=== PATIENT | female | born 1975 | race Two or more races ===

== ENCOUNTER 2017-04-12 15:16 | Emergency (ER) | payer OTHER ==
[2017-04-12 15:21] VITALS: BP 122/73; PULSE 90; TEMP 98.3; BMI 24.2
--- NOTE | 2017-04-12 15:21 | PDOC ---
Rapid Medical Evaluation Chief Complaint: Pain Time Seen by Provider: 04/12/17 15:19 Medical Evaluation: Allergies Allergy/AdvReac Type Severity Reaction Status Date / Time No Known Allergies Allergy Verified 04/12/17 15:18 04/12/17 15:20 The patient presents with a chief complaint of: [Swelling to the upper gum line , root canal performed on same in December, Swelling since wednesday, has improved. ] I have performed a brief in-person evaluation of this patient. Pertinent physical exam findings: vss, [ Minor swelling with no evidence of abscess. ] I have ordered the following: [I will evaluate and discharge patient on antibiotics and pain medication. ] The patient will proceed to the ED for further evaluation.
--- NOTE | 2017-04-12 16:44 | PDOC ---
History of Present Illness - General Chief Complaint: Pain Stated Complaint: SWOLLEN LIP Time Seen by Provider: 04/12/17 15:19 History Source: Patient Exam Limitations: No Limitations - History of Present Illness Initial Comments: 04/12/17 16:39 Patient is a 42 y/o female with no significant medical history. Presents to the ER with pain and redness with swelling to the left upper gum line since Wednesday. Had a root canal to the same tooth in December. Has not gone back to the dentist. Denies fever, no difficulty swallowing or breathing, no throat pain, no SOB or CP. Swelling is decreased in the last two days. Getting better as per patient. No Fever 04/12/17 16:44 Timing/Duration: other (2 days) Severity: moderate Past History - Past Medical History Allergies/Adverse Reactions: Allergies Allergy/AdvReac Type Severity Reaction Status Date / Time No Known Allergies Allergy Verified 04/12/17 15:18 Home Medications: Ambulatory Orders Amoxicillin/Potassium Clav [Augmentin 875-125 Tablet] 1 each PO BID #20 tablet 04/12/17 Oxycodone HCl/Acetaminophen [Percocet 5-325 mg Tablet] 1 - 2 tab PO Q4H #20 tablet MDD 12 04/12/17 COPD: No - Suicide/Smoking/Psychosocial Hx Smoking History: Never smoked Have you smoked in the past 12 months: No Information on smoking cessation initiated: No Hx Alcohol Use: No Drug/Substance Use Hx: No Substance Use Type: None Review of Systems - Review of Systems Constitutional: No: Symptoms Reported HEENTM: Yes: Mouth Pain, Dental Problems, Mouth Swelling (left upper gum line. b ). No: Difficulty Swallowing Respiratory: No: Symptoms reported Cardiac (ROS): No: Symptoms Reported ABD/GI: No: Symptoms Reported : No: Symptoms Reported Musculoskeletal: No: Symptoms Reported Integumentary: No: Symptoms Reported Hematologic/Lymphatic: No: Symptoms Reported All Other Systems: Reviewed and Negative *Physical Exam - Vital Signs Last Vital Signs Temp Pulse Resp BP Pulse Ox 98.3 F 90 18 122/73 100 04/12/17 15:19 04/12/17 15:19 04/12/17 15:19 04/12/17 15:19 04/12/17 15:19 - Physical Exam General Appearance: Yes: Appropriately Dressed. No: Apparent Distress HEENT: positive: SORIN, Normal ENT Inspection, Normal Voice, Symmetrical, TMs Normal, Pharynx Normal, Other (pain and redness to the left upper gum line. No visible abcess, no fluctuance). negative: Pharyngeal Erythema, Tonsillar Exudate, Tonsillar Erythema, Nasal Congestion, Rhinorrhea, Sinus Tenderness, Orbits Neck: positive: Trachea midline. negative: Tender, Lymphadenopathy (R), Lymphadenopathy (L), Tender lateral, Tender midline Respiratory/Chest: positive: Lungs Clear, Normal Breath Sounds. negative: Respiratory Distress, Accessory Muscle Use Cardiovascular: positive: Regular Rhythm, Regular Rate Lymphatic: negative: Adenopathy, Tenderness Integumentary: positive: Normal Color, Dry. negative: Erythema, Swelling, Ecchymosis, Bruising Neurologic: positive: Alert, Normal Mood/Affect Medical Decision Making - Medical Decision Making 04/12/17 16:44 A/P : Patient with swelling to the left upper gumline, history of root canal to the same. There is no visible abscess. I will Discharge patient to follow up with dental. *DC/Admit/Observation/Transfer Diagnosis at time of Disposition: Swelling of gums - Discharge Dispostion Disposition: HOME Condition at time of disposition: Stable Admit: No - Prescriptions Prescriptions: Amoxicillin/Potassium Clav [Augmentin 875-125 Tablet] 1 each PO BID #20 tablet Oxycodone HCl/Acetaminophen [Percocet 5-325 mg Tablet] 1 - 2 tab PO Q4H #20 tablet MDD 12 - Referrals Referrals: Souleymane Bustamante MD [Primary Care Provider] - - Patient Instructions Additional Instructions: Warm salt water gargles, Please follow up with dental as soon as possible. If any fever, increased swelling, difficulty swallowing, breathing, or other concerns return to the ER - Post Discharge Activity Forms/Work/School Notes: Back to Work
== END 2017-04-12 16:55 | disposition home or self-care (01) ==
LOC: JERFT 15:16
DX: K00-K95 Diseases of the digestive system (principal)
CPT/HCPCS: 99281-25